=== PATIENT | female | born 1960 | race Caucasian/White ===

== ENCOUNTER 2024-06-01 17:58 | Emergency (ER) | payer OTHER ==
[~2024-06-01] VITALS: Ht 170.2 cm; Wt 59.0 kg
[2024-06-01 18:01] VITALS: BP 118/68; PULSE 84; RESP 16; TEMP 98.7; O2SAT 98
[2024-06-01 18:42] VITALS: BP 125/77; PULSE 76; RESP 18
[2024-06-01 18:44] VITALS: O2SAT 96
== END 2024-06-01 18:47 ==
LOC: MED 17:58
DX: Z65.3 Problems related to other legal circumstances (principal); V49.49XA Driver injured in collision with other motor vehicles in traffic accident, initial encounter; Y93.89 Activity, other specified; Y92.89 Other specified places as the place of occurrence of the external cause; Y99.8 Other external cause status
CPT/HCPCS: 99283